=== PATIENT | male | born 1980 ===

== ENCOUNTER 2021-04-03 01:22 | Emergency (ER) | payer MEDICARE, OTHER ==
[~2021-04-03] VITALS: Ht 182.9 cm; Wt 80.7 kg
--- NOTE | 2021-04-03 01:54 | NUR ---
Dr. Pacheco at bedside for MSE.
--- NOTE | 2021-04-03 01:55 | NUR ---
Xray at bedside.
[2021-04-03] MEDS ORDERED: IBUPROFEN 600 MG TABLET PO ONE (02:00)
[2021-04-03] MEDS ORDERED: ZIPR60CA2 PO (02:05)
[2021-04-03] MEDS ORDERED: IBUP-1953 PO (02:05)
[2021-04-03] MEDS ORDERED: IBUPROFEN 600 MG TABLET ONE (02:11)
[2021-04-03 02:23] VITALS: BP 126/82
--- NOTE | 2021-04-03 02:23 | NUR ---
Patient discharged to home in stable condition. Written and verbal after care instructions given. Patient verbalizes understanding of instructions. Stressed follow up or return to ER for worsening s/s. Patient is ambulatory with steady gait, V/S stable, and left with all personal belongings.
== END 2021-04-03 02:23 | disposition home or self-care (01) ==
LOC: ER 01:24
DX: S63.501A Unspecified sprain of right wrist, initial encounter (principal); X50.0XXA Overexertion from strenuous movement or load, initial encounter; Y93.89 Activity, other specified; Y92.89 Other specified places as the place of occurrence of the external cause; F25.9 Schizoaffective disorder, unspecified; Z86.19 Personal history of other infectious and parasitic diseases
CPT/HCPCS: 73110; A4663